=== PATIENT | male | born 1930 | race Caucasian/White ===

== ENCOUNTER → 2017-01-02 | Outpatient (CLI) | payer MEDICARE, BC ==
[~2017-01-02] MED LIST: CIPRO DPS500 MG PO; CO Q-10100 MG PO; COUMADIN2.5 MG PO; CRESTOR10 MG PO; DAILY MULTIPLE1 EAC1 PO; DESYREL-DPS50 MG PO; DIOVAN40 MG PO; FLOMAX DPS0.4 MG PO; HYDROCODONE 5MG/5 MG PO; LASIX DPS40 MG PO; LORTISONE CREAM TP; METOPROLOL SUCC25 MG PO; PEPCID DPS20 MG PO; SURFAK DPS240 MG PO; VITAMIN D-32000 UNI1 PO
== END | disposition home or self-care (01) ==
LOC: RAD.S 08:44
DX: I71.4 Abdominal aortic aneurysm, without rupture (principal); Z98.890 Other specified postprocedural states

== ENCOUNTER 2017-03-19 05:46 | Day surgery (SDC) | payer MEDICARE, BC ==
[~2017-03-19] VITALS: Ht 188 cm; Wt 84.0 kg
--- NOTE | 2017-04-21 06:58 | OR ---
ADMIT: 03/19/2017 RM/LOC: [facility] MR#: [id number] [facility] [address] [place] [id number] [address] [place], [place] [address] Operative/Delivery Room Report SEX: M AGE: 86 : 1930 SURGERY DATE: 03/19/2017 SURGEON: Juan Baker MD PREOPERATIVE DIAGNOSIS: Iron deficiency anemia, question gastrointestinal blood loss. POSTOPERATIVE DIAGNOSES: 1. Extensive sigmoid diverticula. 2. 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 PROCEDURE PERFORMED: Colonoscopy with hot cauterization and destruction of the 2 telangiectasias in the mid-transverse colon. ANESTHESIA: Sedation. ESTIMATED BLOOD LOSS: None. DESCRIPTION OF PROCEDURE: After appropriate informed consent was obtained, the patient was brought to the endoscopy suite. IV sedation was provided. Rectal exam was performed, he had mild hemorrhoids, no rectal masses. Scope was introduced, passed the entire length of colon. He had a pretty good prep, just a little bit of liquid stool throughout as I was able to irrigate and suction out. He had extensive sigmoid diverticula and some tortuosity of sigmoid colon, but ultimately I was able to advance through this area. Scope was easily advanced to the cecum. The ileocecal valve and appendiceal orifice appeared normal. I attempted to intubate the ileocecal valve, but due to its position, I was unable to. Scope was slowing and carefully withdrawn. On the way out, there were 2 small telangiectasia in the mid-transverse colon, both about 2 to 3 mm in size. Given his ongoing anemia, I elected to destroy these telangiectasias with cautery, so hot biopsy forceps was utilized and then with just taps of cautery, I was able to destroy these 2 telangiectasias. Everything appeared hemostatic. The scope was then slowly and carefully withdrawn, the remainder of the colonic mucosa appeared normal other than the diverticula. The scope was retroflexed in rectum revealing mild internal hemorrhoids, no rectal masses. The patient tolerated the procedure well and was taken to the recovery room in stable condition. Juan Baker MD/ sandy JOB #: [id number] CC: Juan Baker, Attending Physician Ayden Delarosa, Family Physician Martin Rodgers MD
== END 2017-03-19 09:37 | disposition home or self-care (01) ==
LOC: SSS 05:46
PROC: 0D5L8ZZ Destruction of Transverse Colon, Via Natural or Artificial Opening Endoscopic (ICD-10-PCS; principal; 2017-03-19)
DX: I78.1 Nevus, non-neoplastic (principal); K57.30 Diverticulosis of large intestine without perforation or abscess without bleeding; D50.9 Iron deficiency anemia, unspecified; F17.210 Nicotine dependence, cigarettes, uncomplicated; G47.30 Sleep apnea, unspecified; I25.10 Atherosclerotic heart disease of native coronary artery without angina pectoris; I48.91 Unspecified atrial fibrillation; Z98.890 Other specified postprocedural states; Z79.899 Other long term (current) drug therapy; Z79.82 Long term (current) use of aspirin; Z88.8 Allergy status to other drugs, medicaments and biological substances